=== PATIENT | male | born 1980 | race Two or more races ===

== ENCOUNTER 2019-08-18 18:31 | Emergency (ER) | payer MEDICAID ==
[~2019-08-18] VITALS: Ht 175.3 cm; Wt 86.4 kg
[~2019-08-18 18:31] MED LIST: IBUP-1506 PO; PROCTOSOL
[2019-08-18 19:39] LABS: BASOPHILS % (AUTO) 1.5 % (0.0-2.0); HEMATOCRIT 46.2 % (41-53); LYMPHOCYTES # (AUTO) 2.7 K/uL (1.0-4.8); LYMPHOCYTES % (AUTO) 35.2 % (22.0-44.0); MEAN CORPUSCULAR HEMOGLOBIN 31.2 pg (26.0-34.0); MEAN CORPUSCULAR HGB CONC 34.6 G/dL (31.0-37.0); MEAN CORPUSCULAR VOLUME 90 fL (80-100); MONOCYTES # (AUTO) 0.7 K/uL (0.1-1.0); MONOCYTES % (AUTO) 9.6 % (2.0-9.0); NEUTROPHILS # (AUTO) 3.2 K/uL (1.8-7.7); NEUTROPHILS % (AUTO) 41.7 % (40.0-70.0); PLATELET COUNT (AUTO) 159 K/uL (150-450); RED BLOOD CELL COUNT(AUTO) 5.12 MIL/uL (4.50-5.90); RED CELL DISTRIBUTION WIDTH 13.1 % (11.5-14.5)
[2019-08-18] MEDS ORDERED: PB/HYOSCY/ATR/SCOP/LIDO/MAALOX 55 ML BOTTLE PO ONE (19:45)
[2019-08-18 19:51] LABS: ANION GAP 8 mmol/L (8-16); CALCIUM, TOTAL 9.2 mg/dL (8.8-10.5); CARBON DIOXIDE 28 mmol/L (22-29); CHLORIDE 102 mmol/L (98-107); CREATININE 1.04 mg/dL (0.60-1.30); GLOMERULAR FILTR. RATE CALC > 60 mL/min (>60); GLUCOSE,RANDOM 90 mg/dL (70-110); POTASSIUM 4.2 mmol/L (3.5-5.1); SODIUM SERUM 138 mmol/L (136-145); UREA NITROGEN, BLOOD 12 mg/dL (7-18)
[2019-08-18 19:56] LABS: ALANINE AMINOTRANSFERASE 36 U/L (12-78); ALBUMIN 4.2 g/dL (3.4-5.0); ALKALINE PHOSPHATASE 99 U/L (46-116); ASPARTATE AMINOTRANSFERASE 18 U/L (15-37); BILIRUBIN,TOTAL 0.7 mg/dL (0.1-1.0); LIPASE 104 U/L (73-393)
[2019-08-18 21:05] VITALS: BP 160/97
== END 2019-08-18 21:24 | disposition home or self-care (01) ==
LOC: EMS 18:32
DX: K29.70 Gastritis, unspecified, without bleeding (principal)
CPT/HCPCS: 76705; 93005

== ENCOUNTER 2020-04-24 14:43 | Emergency (ER) | payer MEDICAID ==
[~2020-04-24] VITALS: Ht 167.6 cm; Wt 81.8 kg
[2020-04-24 15:16] LABS: BASOPHILS % (AUTO) 0.3 % (0.0-2.0); EOSINOPHILS % (AUTO) 0 % (1.0-6.0); HEMATOCRIT 42.9 % (41-53); HEMOGLOBIN 14.8 g/dL (13.5-17.5); LYMPHOCYTES % (AUTO) 9.8 % (22.0-44.0); MEAN CORPUSCULAR HEMOGLOBIN 30.2 pg (26.0-34.0); MEAN CORPUSCULAR HGB CONC 34.6 G/dL (31.0-37.0); MEAN CORPUSCULAR VOLUME 87 fL (80-100); MONOCYTES # (AUTO) 0.7 K/uL (0.1-1.0); MONOCYTES % (AUTO) 6.8 % (2.0-9.0); NEUTROPHILS # (AUTO) 8.7 K/uL (1.8-7.7); NEUTROPHILS % (AUTO) 83.1 % (40.0-70.0); PLATELET COUNT (AUTO) 147 K/uL (150-450); RED BLOOD CELL COUNT(AUTO) 4.92 MIL/uL (4.50-5.90)
[2020-04-24 15:26] LABS: ANION GAP 10 mmol/L (8-16); CALCIUM, TOTAL 8.5 mg/dL (8.8-10.5); CARBON DIOXIDE 23 mmol/L (22-29); CHLORIDE 96 mmol/L (98-107); CREATININE 1.28 mg/dL (0.60-1.30); GLOMERULAR FILTR. RATE CALC > 60 mL/min (>60); GLUCOSE,RANDOM 139 mg/dL (70-110); POTASSIUM 3.6 mmol/L (3.5-5.1); SODIUM SERUM 129 mmol/L (136-145); UREA NITROGEN, BLOOD 10 mg/dL (7-18)
[2020-04-24 15:33] LABS: ALANINE AMINOTRANSFERASE 29 U/L (12-78); ALBUMIN 3.3 g/dL (3.4-5.0); ALKALINE PHOSPHATASE 62 U/L (46-116); ASPARTATE AMINOTRANSFERASE 25 U/L (15-37); BILIRUBIN,TOTAL 0.4 mg/dL (0.1-1.0); TOTAL PROTEIN, SERUM 7.8 g/dL (6.4-8.2)
[2020-04-24] MEDS ORDERED: ACETAMINOPHEN 500 MG TABLET PO ONE (16:30)
[2020-04-24] MEDS ORDERED: SODIUM CHLORIDE 0.9% 1,000 ML IV ONE (16:30)
[2020-04-24 16:47] VITALS: BP 122/86
[2020-04-24 16:50] LABS: INFLUENZA TYPE A NEGATIVE FOR TYPE A (NEGATIVE); INFLUENZA TYPE B NEGATIVE FOR TYPE B (NEGATIVE)
[2020-04-24] MEDS ORDERED: DOXYCYCLINE HYCLATE 100 MG TABLET PO ONE (17:15)
== END 2020-04-24 18:06 | disposition home or self-care (01) ==
LOC: EMS 14:44
DX: U07.1 COVID-19 (principal); J12.89 Other viral pneumonia; R50.9 Fever, unspecified; R19.7 Diarrhea, unspecified
CPT/HCPCS: 36415; 71045; 80053; 83880; 84484; 85025; 87426; 87804; 93005; 96360; 99285; U0003

== ENCOUNTER 2022-03-23 11:39 | Emergency (ER) | payer MEDICAID ==
[~2022-03-23] VITALS: Ht 167.6 cm; Wt 80.9 kg
[2022-03-23] MEDS ORDERED: PERTUSS(ACELL),DIPH,TET VAC/PF 0.5 ML SYRINGE IM. ONE (14:30)
[2022-03-23] MEDS ORDERED: DOXYCYCLINE HYCLATE 100 MG TABLET PO ONE (14:30)
[2022-03-23] MEDS ORDERED: LIDOCAINE 1% 10 ML VIAL SQ ONE (14:30)
[2022-03-23] MEDS ORDERED: ACETAMINOPHEN 500 MG TABLET PO ONE (14:30)
[2022-03-23] MEDS ORDERED: BACITRACIN 28 GM OINTMENT TP ONE (14:30)
[2022-03-23 14:44] VITALS: BP 142/95
[2022-03-23] MEDS ORDERED: DOXY-354 PO (14:48)
== END 2022-03-23 15:11 | disposition home or self-care (01) ==
LOC: EMS 11:39
DX: S61.210A Laceration without foreign body of right index finger without damage to nail, initial encounter (principal); K64.9 Unspecified hemorrhoids; W27.1XXA Contact with garden tool, initial encounter; Y93.H2 Activity, gardening and landscaping; Y92.89 Other specified places as the place of occurrence of the external cause; Y99.8 Other external cause status
CPT/HCPCS: 99283; 90715; 90471; 12001; J3490; 99284

== ENCOUNTER 2022-03-30 16:43 | Emergency (ER) | payer MEDICAID ==
[~2022-03-30] VITALS: Ht 165.1 cm; Wt 79.5 kg
[~2022-03-30 16:43] MED LIST changes: +DOXY-354 PO; -IBUP-1506 PO; -PROCTOSOL
[2022-03-30 17:15] VITALS: BP 134/81
== END 2022-03-30 18:07 | disposition home or self-care (01) ==
LOC: EMS 16:43
DX: S61.310D Laceration without foreign body of right index finger with damage to nail, subsequent encounter (principal); F10.20 Alcohol dependence, uncomplicated; X58.XXXD Exposure to other specified factors, subsequent encounter; Z48.02 Encounter for removal of sutures
CPT/HCPCS: 99281; Z7502